=== PATIENT | female | born 1995 | race Caucasian/White ===

== ENCOUNTER 2019-03-14 16:00 | Emergency (ER) | payer MEDICAID ==
[~2019-03-14] VITALS: Ht 160 cm; Wt 50.8 kg
[2019-03-14 16:36] VITALS: BP_SYST 106
--- NOTE | 2019-03-14 16:40 | NUR ---
Patient triaged and placed in waiting room. VSS and patient appears in no acute distress at this time. Accompanied by friend, awaiting available bed, and MD notified of need for MSE.
[2019-03-14] MEDS ORDERED: ONDANSETRON HCL 4 MG/2 ML VIAL IVP ONE (17:30)
[2019-03-14] MEDS ORDERED: KETOROLAC TROMETHAMINE 30 MG VIAL IVP ONE (17:30)
[2019-03-14] MEDS ORDERED: NACL 0.9% 1,000 ML IV ONE (17:30)
--- NOTE | 2019-03-14 17:39 | NUR ---
Patient to ER bed 08 to gown for evaluation. Side rails up. Report given to DESIREE Rollins
--- NOTE | 2019-03-14 18:00 | NUR ---
ER JAIR Ayers at bedside examining patient.
--- NOTE | 2019-03-14 18:08 | NUR ---
Pt AAOx4 ambulated into ED c/o generalized weakness, 10/10 lower abd pain radiating to lower back. + N/V/D Addendum: 03/14/19 at 1836 by [email or web address] No other injuries/complaints per pt/noted. Will continue to monitor.
[2019-03-14 18:18] LABS: BASOPHILS % (AUTO) 0.2 % (0.0-2.0); EOSINOPHILS % (AUTO) 0.2 % (0.0-4.0); HEMOGLOBIN 14.4 g/dL (12.0-16.0); LYMPHOCYTES # (AUTO) 0.5 K/uL (1.0-5.5); LYMPHOCYTES % (AUTO) 8.2 % (20.5-51.5); MEAN CORPUSCULAR HEMOGLOBIN 33 pg (27-31); MEAN CORPUSCULAR HGB CONC 34 % (32-36); MEAN CORPUSCULAR VOLUME 97 fL (79.0-98.0); MONOCYTES # (AUTO) 0.5 K/uL (0.0-1.0); NEUTROPHILS # (AUTO) 5.7 K/uL (1.8-7.7); NEUTROPHILS % (AUTO) 84.4 % (40.0-70.0); PLATELET COUNT (AUTO) 240 K/uL (130-430); RED BLOOD CELL COUNT(AUTO) 4.33 MIL/uL (4.2-6.2); RED CELL DISTRIBUTION WIDTH 13.3 % (9.0-15.0); WHITE BLOOD COUNT (AUTO) 6.7 K/uL (4.8-10.8)
[2019-03-14 18:26] LABS: POTASSIUM 3.2 mmol/L (3.5-5.1)
[2019-03-14 18:27] LABS: CREATININE 0.76 mg/dL (0.55-1.30)
[2019-03-14 18:31] LABS: ALBUMIN 4.6 g/dL (3.4-4.8); TOTAL BILIRUBIN 2.6 mg/dL (0.0-1.0)
[2019-03-14 18:44] LABS: BILIRUBIN,URINE 1+ (NEGATIVE); CLARITY/URINE HAZY (CLEAR); COLOR,URINE YELLOW (YELLOW); GLUCOSE,URINE NEGATIVE (NEGATIVE); KETONES,URINE 1+ (NEGATIVE); LEUKOCYTE ESTERASE ,URINE NEGATIVE (NEGATIVE); NITRITE, URINE NEGATIVE (NEGATIVE); PH,URINE 5.5 (5.0-8.0); PROTEIN URINE 1+ (NEGATIVE)
[2019-03-14 18:46] LABS: BLOOD, URINE TRACE (NEGATIVE)
--- NOTE | 2019-03-14 19:10 | NUR ---
Pt taken to radiology via wheelchair in stable condition.
[2019-03-14] MEDS ORDERED: IOHEXOL 100 ML IV ONE (19:12)
[2019-03-14] MEDS ORDERED: POTASSIUM CHLORIDE 20 MEQ/PKT PACKET PO ONE (19:15)
[2019-03-14 19:20] LABS: BACTERIA,URINE FEW /HPF (None Seen); RBC,URINE 0-3 /HPF (0-3); URINE AMORPHOUS URATE 2+ /HPF (None Seen); WBC,URINE 0-3 /HPF (0-3)
[2019-03-14 19:21] LABS: MUCUS,URINE 2+ /LPF (None Seen)
[2019-03-14] MEDS ORDERED: DICYCLOMINE HCL 20 MG/2 ML AMP IM ONE (19:45)
[2019-03-14 20:07] VITALS: BP_SYST 116
--- NOTE | 2019-03-14 20:07 | NUR ---
Patient given written and verbal discharge instructions and verbalizes understanding. ER MD discussed with patient the results and treatment provided. Patient in stable condition. ID arm band removed. IV catheter removed intact and dressing applied, no active bleeding. Rx of Zofran, Tylenol Extra Strength, Bentyl given. Patient educated on pain management and to follow up with PMD. Pain Scale 0. Opportunity for questions provided and answered. Medication side effect fact sheet provided.
--- NOTE | 2019-03-15 11:38 | NUR ---
Radiology discrepancy: called pt to discuss pericardial effusion. Pt could not be reached, jermain left in HIPPA blinded manner instructing pt to call back for discussion of results.
--- NOTE | 2019-03-15 12:08 | NUR ---
Patient called back regarding pericardial effusion. Pt reports that she is having some SOB and weakness, pt was advised to return to ED for eval which she agreed to.
== END 2019-03-14 20:07 | disposition home or self-care (01) ==
LOC: SED 16:00
DX: K52.9 Noninfective gastroenteritis and colitis, unspecified (principal); E87.6 Hypokalemia
CPT/HCPCS: 36415; 74177; 80053; 81000; 81025; 83690; 85025; 96361; 96372; 96374; 96375; 99284; J0500; J1885; J2405; J7030; Q9967

== ENCOUNTER 2019-03-15 18:56 | Emergency (ER) | payer MEDICAID ==
[~2019-03-15] VITALS: Ht 160 cm; Wt 49.9 kg
[2019-03-15 19:14] VITALS: BP_SYST 111
[2019-03-15 19:48] VITALS: BP_SYST 111
== END 2019-03-15 19:48 | disposition home or self-care (01) ==
LOC: SED 18:56
DX: B34.9 Viral infection, unspecified (principal)
CPT/HCPCS: 99284

== ENCOUNTER 2019-09-16 20:19 | Emergency (ER) | payer MEDICAID ==
[~2019-09-16] VITALS: Ht 160 cm; Wt 72.6 kg
[2019-09-16 20:24] VITALS: BP_SYST 95
--- NOTE | 2019-09-16 22:09 | NUR ---
Patient to ER bed 03 to gown for evaluation. Side rails up.
--- NOTE | 2019-09-16 22:15 | NUR ---
Radiology at bedside for CXR
--- NOTE | 2019-09-16 22:42 | NUR ---
Patient AAO x 4 ambulates to ER bed 03 with complaints of 9/10 mid chest pain and shortness of breath x 2 weeks but worse today. Denies taking medications for her symptoms at home. Was seen at urgent care yesterday but was recommended to visit the ER. She reports being diagnosed in the past with fluid around the heart but was not admitted overnight. Even chest rise and fall with respirations. Clear lung sounds noted on auscultation. Will continue to monitor.
--- NOTE | 2019-09-16 23:09 | NUR ---
ER Dr. Awad at bedside examining patient.
[2019-09-16] MEDS ORDERED: KETOROLAC TROMETHAMINE 60 MG/2 ML VIAL IM ONE (23:15)
--- NOTE | 2019-09-16 23:22 | NUR ---
Medication administered. Pt tolerated well. No adverse reactions noted.
[2019-09-17] MEDS ORDERED: MORPHINE 4 MG/ML INJ. SYRINGE IVP ONE (00:30)
[2019-09-17] MEDS ORDERED: MORPHINE 4 MG/ML INJ. SYRINGE IM ONE (01:00)
[2019-09-17 01:12] VITALS: BP_SYST 98
--- NOTE | 2019-09-17 01:12 | NUR ---
Patient given written and verbal discharge instructions and verbalizes understanding. ER MD discussed with patient the results and treatment provided. Patient in stable condition. ID arm band removed. Rx of Motrin given. Patient educated on pain management and to follow up with PMD. Pain Scale 0. Opportunity for questions provided and answered. Medication side effect fact sheet provided.
== END 2019-09-17 01:12 | disposition home or self-care (01) ==
LOC: SED 20:19
DX: R07.89 Other chest pain (principal)
CPT/HCPCS: 71045; 81002; 81025; 96372; 99283; J1885; 93005; J2270

== ENCOUNTER 2019-10-06 17:47 | Emergency (ER) | payer MEDICAID ==
[~2019-10-06] VITALS: Ht 160 cm; Wt 72.6 kg
[2019-10-06 18:08] VITALS: BP_SYST 131
[2019-10-06 18:46] VITALS: BP_SYST 131
== END 2019-10-06 18:46 ==
LOC: SED 17:47
DX: M94.0 Chondrocostal junction syndrome [Tietze] (principal)
CPT/HCPCS: 99283; J7030